=== PATIENT | male | born 1945 | race Caucasian/White ===

== ENCOUNTER 2024-02-28 08:48 | Outpatient (CLI) | payer MEDICARE, SELFPAY ==
[2024-03-06 19:09] VITALS: BMI 30.7
--- NOTE | 2024-03-06 19:09 | WPDSLEEPSTUD ---
Sleep Study Date of Study: 02/28/24 Ordering Provider: MG Bauer Interpreting Physician: Barbara Dixon DO Sleep Study Type: Split Polysomnogram Height: 1.63 m Weight: 81.193 kg Body Mass Index: 30.7 Neck Circumference (inches): 16.25 [place]: 4 Reason for Sleep Study Difficulty tolerating CPAP. Sleep History The patient is a 79 year old male with diabetes, hypertension, hearing loss, cervical radiculopathy, hyperlipidemia, hypertension, migraines, peripheral neuritis, history of TIA and previously diagnosed sleep apnea that had a sleep study ordered by the Pulmonary group to look at other treatment options for his sleep apnea. The patient denies awakening from sleep short of breath. He denies awakening at night with heartburn, belching or cough. He rarely snores and is never loud enough that others complain. He occasionally has trouble sleeping when he has a cold. He denies waking up gasping for air throughout the night. He denies having breathing problems at night observed by himself or others. He occasionally sweats excessively at night. He denies having heart palpitations or irregular heartbeats during the night. He occasionally falls asleep during the day but never while driving. He denies sleep paralysis, cataplexy and hypnagogic / hypnopompic hallucinations. He denies having trouble at school or work due to sleepiness. He denies feeling afraid of going to sleep. He occasionally has nightmares. He occasionally remembers his dreams. He denies having thoughts racing through his mind. He rarely feels sad, depressed or anxious. He denies having muscular tension. He occasionally notices parts of his body jerk. He denies kicking during the night. He occasionally has crawling and aching feelings in his legs but rarely has leg pain during the night. He denies grinding his teeth during sleep and denies awakening with morning jaw pain. He is rarely bothered by pain during the day and rarely awakened by pain during the night. He occasionally wakes up feeling stiff in the morning. He rarely wakes up with sore or achy muscles. He rarely wakes up with pain in the neck, spine and other joints. He goes to bed at 9:00 p.m. on both weekdays and weekends. It takes him 15 minutes to fall asleep. He wakes up once throughout the night to use the restroom, drink coffee and eat breakfast. he will stay awake for 3 hours and then go back to bed. He wakes up at 2:00 a.m. on both weekdays and weekends. He typically gets 8 hours of sleep per night. He will stay in bed for 15 minutes after waking up in the morning. He currently lives with his . He denies consuming any caffeinated beverages within 2 hours of bedtime. He denies engaging in physical exercise before bedtime. He will watch television before falling asleep. He will take naps in the afternoon or the evening and they are refreshing. He consumes 36 oz of caffeinated beverage per day. He will consume 1 alcoholic beverage per day. He denies tobacco and recreational drug use. [facility] Past Medical History Medical History Arthritis Cataract Cervical radiculopathy at C5 Dependence on other enabling machines and devices Diabetes Diabetes mellitus, type 2 Essential (primary) hypertension Hearing loss Hyperlipemia Hypertension Migraines Obesity (BMI 30.0-34.9) CB (obstructive sleep apnea) Peripheral neuritis of both feet Sleep apnea CPAP TIA (transient ischemic attack) (~02/2019) Unspecified vitamin D deficiency Urethral stricture Surgical History Surgical History History of cataract surgery (~10/15/19) History of cataract surgery (~11/14/19) History of dilation of urethra History of eye surgery (~04/16/19) hole in macula Family History Family History Father Emphysem
== END 2024-02-29 06:19 | disposition home or self-care (01) ==
LOC: ANHCSM 08:49
PROVIDERS: PCP Family Medicine; Visit Provider Physician Assistant
DX: G47.33 Obstructive sleep apnea (adult) (pediatric) (principal); I10 Essential (primary) hypertension
CPT/HCPCS: 95811

== ENCOUNTER 2024-07-30 23:21 | Emergency (ER) | payer MEDICARE, SELFPAY ==
--- NOTE | ~2024-07-30 | XR_ITS ---
EXAMINATION: XR chest 2V DATE: 07/30/2024 23:55 INDICATION: Chest pain across the back TECHNIQUE: PA and lateral views of the chest were obtained. COMPARISON: None FINDINGS: There are few small bilateral calcified pulmonary nodules along with calcified bilateral hilar lymph nodes consistent with old granulomatous disease. No other airspace opacities, pulmonary edema, pleura l effusion or pneumothorax. The cardiomediastinal silhouette is normal. Mild thoracic spondylosis wit h bridging osteophytes at multiple levels consistent with diffuse idiopathic skeletal hyperostosis (D MEY). IMPRESSION: 1. No acute cardiopulmonary disease. Reviewed, dictated and finalized at location A.
--- NOTE | 2024-07-30 23:23 | ECG_ITS ---
Test Date: 2024-07-30 23:28:32 Measurements Intervals Kimberly Rate: 96 P: 52 NE: 202 QRS: -28 QRSD: 106 T: 48 QT: 354 QTc: 448 Interpretive Statements SINUS RHYTHM POSSIBLE LEFT ATRIAL ENLARGEMENT LOW QRS VOLTAGE IN PRECORDIAL LEADS POSSIBLE ANTERIOR MYOCARDIAL INFARCTION , PROBABLY OLD BORDERLINE ST-T WAVE ABNORMALITY- HIGH LATERAL LEADS BASELINE ARTIFACT- I, II, III, AVR, AVL, AVF, V1-V6 ABNORMAL ECG No previous ECG available for comparison Electronically Signed On 07-31-2024 10:15:18 CDT by Tony Lao D.O.
[2024-07-30 23:28] VITALS: BP 122/78; PULSE 90; RESP 20; TEMP 36.9; O2SAT 100
[2024-07-30 23:46] LABS: Hematocrit 49.4 % (42.0-52.0); Hemoglobin 17.3 g/dL (14.0-18.0); Mean Corpuscular Hemoglobin 31.6 pg (26-34); Mean Corpuscular Volume 90.1 fl (80-100); Platelet Count Result 177 k/mm3 (150-375); Red Blood Count 5.48 M/mm3 (4.6-6.20); Red Cell Distribution Width 12.9 % (11.5-14.5); White Blood Count 9.2 K/mm3 (4.5-10.0)
[2024-07-30 23:47] LABS: Basophils Absolute Auto 0.1 K/mm3 (0.0-0.1); Basophils Percent Auto 0.5 % (0.2-1.2); Eosinophils Absolute Auto 0.2 K/mm3 (0-0.3); Eosinophils Percent Auto 1.9 % (0-4.4); Immature Granulocyte Absolute 0.03 K/mm3 (0.00-0.031); Immature Granulocyte Percent A 0.3 % (0-0.5); Lymphocytes Absolute Auto 3.19 K/mm3 (0.9-3.2); Lymphocytes Percent Auto 34.5 % (18.3-44.2); Mean Platelet Volume 10.7 fl (7.4-10.4); Monocytes Percent Auto 10.7 % (2.6-8.5); Neutrophils Absolute Auto 4.8 K/mm3 (1.3-6.7); Neutrophils Percent Auto 52.1 % (45.5-73.1)
[2024-07-30 23:57] LABS: Prothrombin Time 13.7 Seconds (11.1-14.7)
[2024-07-30 23:58] LABS: Partial Thromboplastin Time 30.3 Seconds (22.3-36.8); Potassium 4.2 mmol/L (3.4-5.0)
[2024-07-31 00:09] LABS: Troponin I < 0.012 ng/mL (0.000-0.034)
[2024-07-31 00:56] LABS: Bilirubin,Total 0.4 mg/dL (0.2-1.3); Lipase 88 U/L (23-300)
[2024-07-31 01:02] LABS: Alanine Aminotransferase 26 U/L (6-50); Albumin Level 4.8 g/dL (3.5-5.1); Alkaline Phosphatase 60 U/L (38-126); Anion Gap 16 mmol/L (4-12); Aspartate Amino Transferase 31 U/L (17-59); Blood Urea Nitrogen 20 mg/dL (9-20); Calcium 9.5 mg/dL (8.4-10.2); Carbon Dioxide 23 mmol/L (22-30); Chloride 101 mmol/L (98-107); Estimated CRCL calculation 59 ml/min; Estimated Glomerular Filt Rate > 60; Glucose 126 mg/dL (65-110); Sodium 140 mmol/L (137-145)
== END 2024-07-31 02:10 | disposition left against medical advice (07) ==
PROVIDERS: Emergency Provider Emergency Medicine; PCP Family Medicine
DX: R07.9 Chest pain, unspecified (principal)
CPT/HCPCS: 36415; 71046; 80053; 83690; 84484; 85025; 85610; 85730; 93005; 99199

== ENCOUNTER 2024-08-06 10:46 | Outpatient (CLI) | payer MEDICARE, SELFPAY | END 2024-08-06 10:47 | disposition home or self-care (01) | LOC: ANHAUDIO 10:47 | PROVIDERS: PCP Family Medicine; Visit Provider Otolaryngology | DX: H90.3 Sensorineural hearing loss, bilateral (principal); H62.43 Otitis externa in other diseases classified elsewhere, bilateral; H69.90 Unspecified Eustachian tube disorder, unspecified ear; K21.9 Gastro-esophageal reflux disease without esophagitis | CPT/HCPCS: 92557; 92567 ==

== ENCOUNTER 2025-09-16 10:44 | Outpatient (CLI) | payer MEDICARE, SELFPAY ==
--- OUTSIDE RECORDS SUMMARY | 2025-09-16 11:22 | XMS_ITS | Clinical Summary ---
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
--- OUTSIDE RECORDS SUMMARY | 2025-09-16 11:22 | XMS_ITS | Clinical Summary ---
Author Organization [facility] Address [address] [place] [address] Care Team Providers Care Veterinary Epidemiologist Name Role Phone Nikolas Miller MD Primary Care Provider [phone] Allergies Active Allergy Reactions Criticality Noted Date Comments Prednisone Rash Medium 02/21/2019 Medications losartan (COZAAR) 100 mg tablet Take 1 tablet (100 mg total) by mouth daily Active metFORMIN (GLUCOPHAGE) 500 mg tablet Take 1 tablet (500 mg total) by mouth 2 (two) times a day with meals Active rosuvastatin (CRESTOR) 10 mg tablet 07/23/2019 Active amLODIPine (NORVASC) 2.5 mg tablet Take 1 tablet (2.5 mg total) by mouth daily Active aspirin 81 mg enteric coated tablet Take 1 tablet (81 mg total) by mouth daily Active cholecalciferol (VITAMIN D-3) 400 unit capsule Act luis fernando Jardiance 25 mg tablet Take 1 tablet (25 mg total) by mouth daily 11/13/2021 Active tamsulosin (FLOMAX) 0.4 mg extended release capsule Take by mouth daily 11/25/2021 Active rosuvastatin (CRESTOR) 5 mg tablet Take 1 tablet (5 mg total) by mouth daily 30 tablet 11 12/07/2021 Active icosapent ethyL (VASCEPA) 1 gram capsule 12/23/2022 Active Ozempic 0.25 mg or 0.5 mg(2 mg/1.5 mL) pen injector injection 12/16/2022 Active vit C,A-Kv-wzzin-lut ein-zeaxan 250-90-40-1 mg capsule Take by mouth Active MAGNESIUM ORAL Take by mouth Active Active Problems Problem Noted Date Diagnosed Date Myalgia due to statin 12/28/2022 Type 2 diabetes mellitus wit h complication, without long-term current use of insulin 05/28/2019 Mixed hyperlipidemia 05/28/2019 Essential hypertension 05/28/2019 Obstructive sleep apnea 05/28/2019 TIA (transient ischemic attack) 05/28/2019 Surgical History Surgery Date Site/Laterality Comments OTHER SURGICAL HISTORY macular hole repair Medical History Medical History Date Comments Hypertension Diabetes mellitus Hyperlipidemia Stroke (HCC) Cataract Family History Medical History Relation Name Comments Heart disease Father Heart disease Mother Relation Name Status Comments Father Mother Social History Tobacco Use Types Packs/Day Years Used Date Smoking Tobacco: Never Smokeless Tobacco: Never Tobacco Cessation:Counseling Given: Not Answered Alcohol Use Standard Drinks/Week Comments Yes 0 (1 standard drink = 0.6 oz pur e alcohol) PHQ-2 Answer Date Recorded PHQ-2 Score 0 06/29/2019 Sex and Gender Information Value Date Recorded Sex Assigned at Not on file Legal Sex Male 6:54 PM HEARING AID CONSULTANT Gender Identity Not on file Sexual Orientation Not on file Last Filed Vital Signs Vital Sign Reading Time Taken Comments Blood Pressure 122/76 02/16/2024 10:44 AM CDT Pulse 60 02/16/2024 10:44 AM CDT Temperature 36.4 C (97.5 F) 02/16/2024 10:44 AM CDT Respiratory Rate 18 10/10/2019 12:40 PM HEARING AID CONSULTANT Oxygen Saturation 96% 02/16/2024 10:44 AM CDT Inhaled Oxygen Concentration - - Weight 83.2 kg (183 lb 8 oz) 02/16/2024 10:44 AM CDT Height 170.2 cm (5' 7) 02/16/2024 10:44 AM CDT Body Mass Index 28.74 02/16/2024 10:44 AM CDT Plan of Treatment Health Maintenance Due Date Last Done Comments Albumin Creatinine Ratio, Urine 1945 Fall Risk Assessment 1945 Dilated Eye Exam 1945 Foot Exam 1945 DTaP/Tdap/Td Vaccine (1 - Tdap) 1958 Hepatitis B Screening 1965 Pneumococcal vaccine 65+ (1 of 2 - PCV) 1966 Zoster Vaccine (1 of 2) 1997 Well Visit 65+ 01/08/2012 Hemoglobin A1C 08/23/2019 02/21/2019, 02/21/2019 Depression Screening 02/22/2020 02/21/2019 Lipid Panel 02/22/2020 02/21/2019, 02/21/2019 eGFR 09/20/2020 09/20/2019 Influenza Vaccine (#1) 2025 08/22/2020 Hepatitis C Screening Completed 09/20/2019 Procedures Procedure Name Priority Date/Time Associated Diagnosis Comments HEPATITIS C ANTIBODY Routine 09/20/2019 10:29 AM HEARING AID CONSULTANT Positive GLENN (antinuclear antibody) Arthralgia, unspecified joint Myalgia EGFR Routine 09/20/2019 10:29 AM HEARING AID CONSULTANT Positive GLENN (antinuclear antibody) Arthralgia, unspecified joint Myalgia HEMOGLOBIN A1C STAT 02/21/2019 9:53 PM CDT LIPID PANEL STAT 02/21/2019 9:53 PM CDT from Last 3 Months or Most Recently Relevant to Health Maintenance Results * eGFR (09/20/2019 10:29 AM HEARING AID CONSULTANT) eGFR 85 mL/min/1.7 3 m2 [facility] Comment: Interpretive Data Reference Interval Normal >/= 90 mL/min/1.73m2 Mildly decreased* 60 - 89 mL/min/1.73m2 Mildly to moderately decreased 45 - 59 mL/min/1.73m2 Moderately to severely decreased 30 - 44 mL/min/1.73m2 Severely decreased 15 - 29 mL/min/1.73m2 Kidney Failure < 15 mL/min/1.73m2 *Relative to young adult level If -Tanzanian multiply value by 1.16. Estimated glomerular filtration rate is determined by the CKD-EPI equation recommended by the National Kidney Foundation (KDIGO 2012 Clinical Practice Guideline for the Evaluation and Management of Chronic Kidney Disease. Kidney Intnl Suppl Nov 2012;3:1). The CKD-EPI equation should not be used for patients with unstable renal function and has not been validated in children and those over 70. Current interpretive data was last reviewed 2017. Blood specimen (specimen) 09/20/2019 10:29 AM HEARING AID CONSULTANT 09/20/2019 3:38 PM HEARING AID CONSULTANT Acacia Mathews MD LAB BLOOD ORDERABL ES Final Result Performing Organization Address City/[facility]/ZIP Co de Phone Number [facility] [address] [place] [address] * Hepatitis C antibody (09/20/2019 10:29 AM HEARING AID CONSULTANT) Pathologist [facility] Hep C Ab Non-Reactiv e Non-Reactiv e [facility] Blood specimen (specimen) 09/20/2019 10:29 AM HEARING AID CONSULTANT 09/20/2019 3:22 PM HEARING AID CONSULTANT Acacia Mathews MD LAB MICROBIOLOGY - GENERAL ORDERABLES Final Result Performing Organization Address [facility] Co de Phone Number [facility] [address] Department [place] [address] * (ABNORMAL) Hemoglobin A1c (02/21/2019 9:53 PM CDT) Pathologist [facility] Hgb A1C 6.6(H) 4.0 - 5.6 % [facility] Estimated Average Glucose 143 mg/dL [facility] Comment: The ADA recommends reporting an estimated Average Glucose (eAG) with all Hemoglobin A1c results using the equation derived from a study of 507 normal and diabetic adults. Minority populations were underrepresented and children were not included. (Diabetes Care 31:2814-3050, 2008). The eAG is not equivalent to a fasting glucose. Blood specimen (specimen) 02/21/2019 9:53 PM CDT 02/21/2019 10:15 PM CDT Narrative [facility] - 02/22/2019 12:16 AM CDT Kristi Myles MD LAB BLOOD ORDERABLES Final Result Performing Organization Address City/[facility]/ZIP Co de Phone Number [facility] [address] [facility] Department [place] [address] * (ABNORMAL) Lipid panel (02/21/2019 9:53 PM CDT) [facility] Signature Cholesterol 155 30 - 199 mg/dL [facility] Comment: Interpretive Data Ages < or = 19 years Acceptable: <170 mg/dL Borderline high: 170-199 mg/dL High: >or= 200 mg/dL Ages > or = 20 years Desirable: <200 mg/dL Borderline high: 200-239 mg/dL High: >or= 240 mg/dL Literature References: 1. Expert Panel on Integrated Guidelines for Cardiovascular Health and Risk Reduction in Children and Adolescents. Pediatrics 2011;128:S213 2. NCEP Expert Panel. Circulation 2004;110:227 Current Interpretive Data was last revised on 2018. Triglycerides 188(H) <=149 mg/dL [facility] Comment: Interpretive Data Ages < or = 9 years Acceptable: <75 mg/dL Borderline high: 75-99 mg/dL High: >or= 100 mg/dL Ages 10 to 20 years Acceptable: <90 mg/dL Borderline high: 90-129 mg/dL High: >or= 130 mg/dL Ages > or = 20 years Desirable: <150 mg/dL Borderline high: 150-199 mg/dL High: 200-499 mg/dL Very high: >or= 499 mg/dL Literature References: 1. Expert Panel on Integrated Guidelines for Cardiovascular Health and Risk Reduction in Children and Adolescents. Pediatrics 2011;128:S213 2. NCEP Expert Panel. Circulation 2004;110:227 Current Interpretive Data was last revised on 2018. HDL 34(L) >=40 mg/dL [facility] Comment: Interpretive Data Ages < or = 19 years Acceptable: >45 mg/dL Borderline low: 40-45 mg/dL Low: <40 mg/dL Ages > or = 20 years Desirable: >or= 60 mg/dL Low: <40 mg/dL Literature References: 1. Expert Panel on Integrated Guidelines for Cardiovascular Health and Risk Reduction in Children and Adolescents. Pediatrics 2011;128:S213 2. NCEP Expert Panel. Circulation 2004;110:227 Current Interpretive Data was last revised on 2018. LDL, calculated 83 <=129 mg/dL [facility] Comment: Interpretive Data Ages < or = 19 years Acceptable: <110 mg/dL Borderline high: 110-129 mg/dL High: >or= 130 mg/dL Ages > or = 20 years Optimal: <100 mg/dL Near optimal: 100-129 mg/dL Borderline high: 130-159 mg/dL High: >160 mg/dL Literature References: 1. Expert Panel on Integrated Guidelines for Cardiovascular Health and Risk Reduction in Children and Adolescents. Pediatrics 2011;128:S213 2. NCEP Expert Panel. Circulation 2004;110:227 Current Interpretive Data was last revised on 2018. Non-HDL Cholesterol 121 mg/dL [facility] Comment: Interpretive Data Ages < or = 19 years Acceptable: <120 mg/dL Borderline high: 120-144 mg/dL High: >145 mg/dL Ages > or = 20 years When triglycerides are >200 mg/dL, Non-HDL cholesterol is a secondary target of therapy with treatment goals that are 30 mg/dL greater than the LDL cholesterol target. Literature References: 1. Expert Panel on Integrated Guidelines for Cardiovascular Health and Risk Reduction in Children and Adolescents. Pediatrics 2011;128:S213 2. NCEP Expert Panel. Circulation 2004;110:227 Current Interpretive Data was last revised on 2018. Chol/HDL ratio 5 [facility] Blood specimen (specimen) 02/21/2019 9:53 PM CDT 02/21/2019 10:07 PM CDT Narrative [facility] - 02/22/2019 12:12 AM CDT Kristi Myles MD LAB BLOOD ORDERABLES Final Result [facility] [address] [facility] Department [place] [address] from Last 3 Months or Most Recently Relevant to Health Maintenance Insurance [facility] MDCR HMO REF MDCR HMO REF Advance Directives For more information, please contact: [phone] * Full Code (Latest Code Status on File) Date Activated Date Inactivated Comments 02/21/2019 11:49 PM 02/22/2019 9:51 PM Care Teams Veterinary Epidemiologist Relationship Specialty Start Date End Date Nikolas Miller MD PCP - General Family Medicine 12/08/20
--- OUTSIDE RECORDS SUMMARY | 2025-09-16 11:22 | XMS_ITS | Encounter Summary ---
Author Organization [facility] Address [address] [place] [address] Care Team Providers Care Corporate Executive Chef Name Role Phone Unavailable Primary Care Provider Unavailabl e Encounter Details Date Type Department Care Team (Late st Contact Info) Description 05/03/2001 Outpatient [facility] [address] [place] [address]. [place] [address] Cleo Calvo MD NO ADDRESS ON FILE Social History Tobacco Use Types Packs/Day Years Used Date Smoking Tobacco: Never Assessed Sex and Gender Information Value Date Recorded Sex Assigned at Not on file Legal Sex Male 3:37 AM SALES DEVELOPER Gender Identity Not on file Sexual Orientation Not on file documented as of this encounter Plan of Treatment Not on file documented as of this encounter Visit Diagnoses Not on filedocumented in this encounter
--- OUTSIDE RECORDS SUMMARY | 2025-09-16 11:22 | XMS_ITS | Encounter Summary ---
Author Organization [facility] Address [address] [place] [address] Care Team Providers Care Tram Inspector Name Role Phone Unavailable Primary Care Provider Unavailabl e Encounter Details Date Type Department Care Team (Late st Contact Info) Description 06/15/2001 Outpatient [facility] [address] [place] [address]. [place] [address] Cleo Calvo MD NO ADDRESS ON FILE Social History Tobacco Use Types Packs/Day Years Used Date Smoking Tobacco: Never Assessed Sex and Gender Information Value Date Recorded Sex Assigned at Not on file Legal Sex Male 3:37 AM ENTERTAINMENT USHER Gender Identity Not on file Sexual Orientation Not on file documented as of this encounter Plan of Treatment Not on file documented as of this encounter Visit Diagnoses Not on filedocumented in this encounter
--- OUTSIDE RECORDS SUMMARY | 2025-09-16 11:22 | XMS_ITS | Encounter Summary ---
Author Organization [facility] Address [address] [place] [address] Care Team Providers Care Inspector Scales Name Role Phone Unavailable Primary Care Provider Unavailabl e Encounter Details Date Type Department Care Team (Late st Contact Info) Description 04/23/2001 Outpatient [facility] [address] [place] [address]. 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
--- OUTSIDE RECORDS SUMMARY | 2025-09-16 11:22 | XMS_ITS | Encounter Summary ---
Author Organization [facility] Address [address] [place] [address] Care Team Providers Care Enrichment Assistant Name Role Phone Unavailable Primary Care Provider Unavailabl e Encounter Details Date Type Department Care Team (Late st Contact Info) Description 09/06/2001 Outpatient [facility] [address] [place] [address]. [place] [address] Cleo Calvo MD NO ADDRESS ON FILE Social History Tobacco Use Types Packs/Day Years Used Date Smoking Tobacco: Never Assessed Sex and Gender Information Value Date Recorded Sex Assigned at Not on file Legal Sex Male 3:37 AM POLE INSPECTOR Gender Identity Not on file Sexual Orientation Not on file documented as of this encounter Plan of Treatment Not on file documented as of this encounter Visit Diagnoses Not on filedocumented in this encounter
--- OUTSIDE RECORDS SUMMARY | 2025-09-16 11:22 | XMS_ITS | Encounter Summary ---
Author Organization [facility] Address [address] [place] [address] Care Team Providers Care Information Management Manager Name Role Phone Unavailable Primary Care Provider Unavailabl e Encounter Details Date Type Department Care Team (Late st Contact Info) Description 03/13/2009 Outpatient Historical [facility] Basilio Navarro MD [address] [place] [address] Social History Tobacco Use Types Packs/Day Years Used Date Smoking Tobacco: Never Assessed Sex and Gender Information Value Date Recorded Sex Assigned at Not on file Legal Sex Male 3:37 AM PROJECT COORDINATOR Gender Identity Not on file Sexual Orientation Not on file documented as of this encounter Plan of Treatment Not on file documented as of this encounter Procedures Procedure Name Priority Date/Time Associated Diagnosis Comments PATHOLOGY Routine 03/13/2009 11:16 AM CDT documented in this encounter Results * PATHOLOGY (03/13/2009 11:16 AM CDT) FINAL REPORT [address] [address] Patient: MARY BYERS : 1945 Procedure Date: 03/13/2009 Accession Date: 03/13/2009 Case No: [id number] Ordering Dr: BASILIO NAVARRO Case types AW, BW, FW, NW and SH are performed by [facility], [place], [place] SURGICAL PATHOLOGY & NON-GYNECOLOGIC CYTOPATHOLOGY REPORT DIAGNOSIS LARGE INTESTINE, CECUM, ENDOSCOPIC BIOPSY: - SERRATED POLYP (SEE DESCRIPTION). Specimen Description: Cecal colon polyp. Operative Procedure: Colonoscopy. Patient Information/History /Diagnosis: None provided. Gross: Received in a single container labeled Mary Carril, cecal polyp are two krishnamurthy tissue fragments measuring 0.1 and 0.2 cm in greatest dimension. The specimen is completely submitted labeled A1. ALICIA/MAIKEL 03.13.2009 02:22 pm Microscopic: Received are slides labeled [id number], Mary Byers. Sections of cecum identify serrated colonic glands surfaced by cells with abundant eosinophilic cytoplasm and intracytoplasmic mucin. Gland dilatation is present, suggestive of a sessile serrated polyp (adenoma). However, the changes are not sufficiently developed to establish this diagnosis with certainty. IRMA/MAIKEL 03.16.2009 12:49 pm Staging Form: No. ELECTRONIC SIGNATURE FOR UZIEL GALINDO M.D.- 03/16/09 04:07 pm INTERFACE SYSTEM 03/13/2009 11:1 6 AM CDT us Basilio Navarro MD PATHOLOGY/CYTOLOGY ORDERABL ES Final Result INTERFACE SYSTEM Refer to clinic/hospital department documented in this encounter Visit Diagnoses Not on filedocumented in this encounter
--- OUTSIDE RECORDS SUMMARY | 2025-09-16 11:22 | XMS_ITS | Encounter Summary ---
Author Organization [facility] Address [address] [place] [address] Care Team Providers Care Broadcast Traffic Coordinator Name Role Phone Unavailable Primary Care Provider Unavailabl e Encounter Details Date Type Department Care Team (Late st Contact Info) Description 03/01/2001 [facility]patient [facility] [address] [place] [address]. [place] [address] Cleo Calvo MD NO ADDRESS ON FILE Social History Tobacco Use Types Packs/Day Years Used Date Smoking Tobacco: Never Assessed Sex and Gender Information Value Date Recorded Sex Assigned at Not on file Legal Sex Male 3:37 AM ACCOUNT COLLECTOR Gender Identity Not on file Sexual Orientation Not on file documented as of this encounter Plan of Treatment Not on file documented as of this encounter Visit Diagnoses Not on filedocumented in this encounter
== END 2025-09-16 10:45 | disposition home or self-care (01) ==
LOC: ANHGOSHLAB 10:46
PROVIDERS: PCP Family Medicine; Visit Provider Family Medicine
DX: E11.9 Type 2 diabetes mellitus without complications (principal); I48.91 Unspecified atrial fibrillation; K62.5 Hemorrhage of anus and rectum
CPT/HCPCS: 36415

== ENCOUNTER 2025-09-25 07:17 | Outpatient (CLI) | payer MEDICARE, SELFPAY ==
--- NOTE | ~2025-09-25 | NM_ITS ---
EXAMINATION: NM bishop stress w perfusion DATE: 09/25/2025 10:26 INDICATION: Atrial fibrillation TECHNIQUE: Rest images were obtained following intravenous administration of 12.1 mCi Tc99m tetrofosmin (Myoview). The patient was infused intravenously with Lexiscan (regadenoson). Then, 34.4 mCi Tc99m tetrofosmin (Myoview) was administered intravenously, and stress images were obtained. Data was ernesto nstructed into short axis and horizontal and vertical long axis SPECT images. Gated SPECT images were also obtained. COMPARISON: None. FINDINGS: On the short axis, and vertical long axis images, photopenic changes in the inferior wall normalizes on prone imaging. The remainder of the left ventricle appears normal. There is no segmental wall motion abnormality. Left ventricular ejection fraction measures 69%. IMPRESSION: 1. No definite ischemia or infarct. 2. Normal left ventricular ejection fraction measuring 69%. Reviewed, dictated and finalized at location A. ICAL DATA MANAGEMENT MANAGER
--- OUTSIDE RECORDS SUMMARY | 2025-09-25 07:21 | XMS_ITS | Clinical Summary ---
Author Organization [facility] Address [address] [facility] Attn: Epic Prelude ADT HUYEN GAINES [address] Care Team Providers Care Continuous Dryout Operator Name Role Phone Unavailable Primary Care Provider Unavailabl e Social History Tobacco Use Types Packs/Day Years Used Date Smoking Tobacco: Never Assessed Sex and Gender Information Value Date Recorded Sex Assigned at Not on file Legal Sex Male 3:37 AM ELECTRICAL ACCESSORIES I ASSEMBLER Gender Identity Not on file Sexual Orientation [...]
--- OUTSIDE RECORDS SUMMARY | 2025-09-25 07:22 | XMS_ITS | Encounter Summary ---
Author Organization [facility] Address [address] [place] [address] Care Team Providers Care Fleece Tier Name Role Phone Unavailable Primary Care Provider Unavailabl e Encounter Details Date Type Department Care Team (Late st Contact Info) Description 06/15/2001 [facility] [address] [place] [address]. 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
--- OUTSIDE RECORDS SUMMARY | 2025-09-25 07:22 | XMS_ITS | Encounter Summary ---
Author Organization [facility] Address [address] [place] [address] Care Team Providers Care Rn Gynecology Name Role Phone Unavailable Primary Care Provider Unavailabl e Encounter Details Date Type Department Care Team (Late st Contact Info) Description 05/03/2001 Outpatient [facility] [address] [place] [address]. 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
--- OUTSIDE RECORDS SUMMARY | 2025-09-25 07:22 | XMS_ITS | Clinical Summary ---
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 Gender Identity Not on file Sexual Orientation Not on file Last Filed Vital Signs Vital Sign Reading Time Taken Comments Blood Pressure 122/76 02/16/2024 10:44 AM CDT Pulse 60 02/16/2024 10:44 AM CDT Temperature 36.4 C (97.5 F) 02/16/2024 10:44 AM CDT Respiratory Rate 18 10/10/2019 12:40 PM AUTO BRAKE TECHNICIAN Oxygen Saturation 96% 02/16/2024 10:44 AM CDT [...] HEPATITIS C ANTIBODY Routine 09/20/2019 10:29 AM AUTO BRAKE TECHNICIAN Positive GLENN (antinuclear antibody) Arthralgia, unspecified joint Myalgia EGFR Routine 09/20/2019 10:29 AM AUTO BRAKE TECHNICIAN Positive GLENN (antinuclear antibody) Arthralgia, unspecified joint Myalgia HEMOGLOBIN A1C STAT 02/21/2019 9:53 PM CDT LIPID PANEL STAT 02/21/2019 9:53 PM CDT from Last 3 Months or Most Recently Relevant to Health Maintenance Results * eGFR (09/20/2019 10:29 AM AUTO BRAKE TECHNICIAN) eGFR 85 mL/min/1.7 3 m2 [facility] Comment: Interpretive Data Reference Interval Normal >/= 90 mL/min/1.73m2 Mildly decreased* 60 - 89 mL/min/1.73m2 Mildly to moderately decreased 45 - 59 mL/min/1.73m2 Moderately to severely decreased 30 - 44 mL/min/1.73m2 Severely decreased 15 - 29 mL/min/1.73m2 Kidney Failure < 15 mL/min/1.73m2 *Relative to young adult level If -Panamanian multiply value by 1.16. Estimated glomerular filtration [...] 2017. Blood specimen (specimen) 09/20/2019 10:29 AM AUTO BRAKE TECHNICIAN 09/20/2019 3:38 PM AUTO BRAKE TECHNICIAN Acacia Mathews MD LAB BLOOD ORDERABL ES Final Result [facility] [address] [place] [address] * Hepatitis C antibody (09/20/2019 10:29 AM AUTO BRAKE TECHNICIAN) Pathologist [facility] Hep C Ab Non-Reactiv e Non-Reactiv e [facility] Blood specimen (specimen) 09/20/2019 10:29 AM AUTO BRAKE TECHNICIAN 09/20/2019 3:22 PM AUTO BRAKE TECHNICIAN Acacia Mathews MD LAB MICROBIOLOGY - GENERAL ORDERABLES Final Result Performing Organization Address [facility] Co de Phone Number [facility] [address] Department [place] [address] * (ABNORMAL) Hemoglobin A1c (02/21/2019 9:53 PM CDT) Hgb A1C 6.6(H) 4.0 - 5.6 % [facility] Estimated Average Glucose 143 mg/dL [facility] Comment: The ADA recommends reporting an estimated Average Glucose (eAG) with all Hemoglobin A1c results using the equation derived from a study of 507 normal and diabetic adults. Minority populations were underrepresented and children were not included. (Diabetes Care 31:3629-7450, 2008). The eAG is not equivalent to a fasting glucose. Blood specimen (specimen) 02/21/2019 9:53 PM CDT 02/21/2019 10:15 PM CDT Narrative [facility] - 02/22/2019 12:16 AM CDT Kristi Myles MD LAB BLOOD ORDERABLES Final Result Performing Organization Address City/[facility]/ZIP Co de Phone Number [facility] [address] [facility] Department [place] [address] * (ABNORMAL) Lipid panel (02/21/2019 9:53 PM CDT) Cholesterol 155 30 - 199 mg/dL [facility] Comment: Interpretive Data Ages < or = [...] revised on 2018. Triglycerides 188(H) <=149 mg/dL [facility] Comment: Interpretive Data Ages < or = [...] revised on 2018. HDL 34(L) >=40 mg/dL [facility] Comment: Interpretive Data Ages < or = [...] on 2018. LDL, calculated 83 <=129 mg/dL [facility] Comment: Interpretive Data Ages < or = [...] revised on 2018. Non-HDL Cholesterol 121 mg/dL [facility] Comment: Interpretive Data Ages < or = [...] last revised on 2018. Chol/HDL ratio 5 [facility] Blood specimen (specimen) 02/21/2019 9:53 PM CDT 02/21/2019 10:07 PM CDT Narrative [facility] - 02/22/2019 12:12 AM CDT Kristi Myles MD LAB BLOOD ORDERABLES Final Result [facility] Department [place] [address] from Last 3 Months or Most Recently Relevant to Health Maintenance Insurance [facility] MDCR HMO REF MDCR HMO REF Advance Directives For more information, please contact: [phone] * Full Code (Latest Code Status on File) Date Activated Date Inactivated Comments 02/21/2019 11:49 PM 02/22/2019 9:51 PM Care Teams Delivery Supervisor Relationship Specialty Start Date End Date Nikolas Miller MD PCP - General Family Medicine 12/08/20
--- OUTSIDE RECORDS SUMMARY | 2025-09-25 07:22 | XMS_ITS | Encounter Summary ---
Author Organization [facility] Address 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 Gender Identity Not on file Sexual Orientation Not on file documented as of this encounter Plan of Treatment Not on file documented as of this encounter Procedures Procedure Name Priority Date/Time Associated Diagnosis Comments PATHOLOGY Routine 03/13/2009 11:16 AM CDT documented in this encounter Results * PATHOLOGY (03/13/2009 11:16 AM CDT) FINAL REPORT [address] [address] Patient: MARY BYERS : 1945 Procedure Date: 03/13/2009 Accession Date: 03/13/2009 Case No: [id number] Ordering Dr: BASILIO NAVARRO Case types AW, BW, FW, NW and SH are performed by [facility] [place] [place], [place] SURGICAL PATHOLOGY & NON-GYNECOLOGIC CYTOPATHOLOGY REPORT [...] 02:22 pm Microscopic: Received are slides labeled [id number], Mary Byers. Sections of cecum identify serrated [...]
--- OUTSIDE RECORDS SUMMARY | 2025-09-25 07:22 | XMS_ITS | Encounter Summary ---
Author Organization [facility] Address [address] [place] [address] Care Team Providers Care Rental Counter Clerk Name Role Phone Unavailable Primary Care Provider Unavailabl e Encounter Details Date Type Department Care Team (Late st Contact Info) Description 03/01/2001 Outpatient [facility] [address] [place] [address]. [place] [address] Cleo Calvo MD NO ADDRESS ON FILE Social History Tobacco Use Types Packs/Day Years Used Date Smoking Tobacco: Never Assessed Sex and Gender Information Value Date Recorded Sex Assigned at Not on file Legal Sex Male 3:37 AM TRANSPORT RN Gender Identity Not on file Sexual Orientation Not on file documented as of this encounter Plan of Treatment Not on file documented as of this encounter Visit Diagnoses Not on filedocumented in this encounter
--- OUTSIDE RECORDS SUMMARY | 2025-09-25 07:22 | XMS_ITS | Patient Health Record ---
Author Organization [employer] Address [address] [facility] [address] [address] Care Team Providers Care Jewel Sorter Name Role Phone Levy Mitchell MD Primary Care Provider Demar Crespo Unavailable [phone] Reason For Referral No Information Medications Medication SIG (Take, Route, Frequency, Duration) Notes Start Date End Date Status hydrocortisone/lidocaine suppositories hydrocortisone 35 mg/lidocaine 10 mg 1 per rectum bid; Duration: 15 days 02/06/2018 Active Anusol-HC 25 MG 1 suppository Rectal Twice a day; Duration: 12 days 02/06/2018 Active Plan Of Treatment No Information Insurance Providers Payer Name Payer Address Payer Phone Subscriber Number Group Number Insured Name Patient Relationship to Insured Coverage Start Date Coverage End Date [facility] Medicare Complete Hmo-pos E2 [address] [address] [place] [address] [id number] Norberto Byers Self - patient is the insured
--- OUTSIDE RECORDS SUMMARY | 2025-09-25 07:22 | XMS_ITS | Encounter Summary ---
Author Organization [facility] Address [address] [place] [address] Care Team Providers Care Security Specialist Name Role Phone Unavailable Primary Care Provider Unavailabl e Encounter Details Date Type Department Care Team (Late st Contact Info) Description 04/23/2001 Outpatient [facility] [address] [place] [address]. 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
--- OUTSIDE RECORDS SUMMARY | 2025-09-25 07:22 | XMS_ITS | Encounter Summary ---
Author Organization [facility] Address [address] [place] [address] Care Team Providers Care Bolter Helper Name Role Phone Unavailable Primary Care Provider Unavailabl e Encounter Details Date Type Department Care Team (Late st Contact Info) Description 09/06/2001 Outpatient [facility] [address] [place] [address]. 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
--- NOTE | 2025-09-25 08:06 | EST_ITS ---
Patient Info Name: Norberto Byers Age: 80 years : 1945 Gender: Male Ht: 65 in Wt: 178 lbs BSA: 1.95 m2 HR: 60 bpm BP: 124 / 84 mmHg Exam Date: 09/25/2025 8:06 AM Patient Status: O Admit Date: 09/25/2025 Exam Type: CA stress bishop w NM A regadenoson stress test was performed. Staff Referring Physician: Gissel Miller MD Attending Provider: Gissel Miller MD Exercise Technologist: Rohini Gomez Exercise Physician: Tony Lao DO Summary 1. 1. Negative lexiscan stress test for ischemic ST changes by ECG criteria. 2. 2. Stable hemodynamics throughout the test. 3. 3. Nuclear scan to follow and will be reported separately. Please correlate with it. 4. 4. Patient informed of the above results. Protocol: Lexiscan Stress ECG Details Stage: REST Duration (min): 0 min : 58 sec HR (bpm): 62 SBP (mmHg): 124 DBP (mmHg): 84 Stage: REST Duration (min): 7 min : 40 sec HR (bpm): 74 SBP (mmHg): 124 DBP (mmHg): 84 Stage: STAGE 1 Duration (min): 0 min : 59 sec HR (bpm): 80 SBP (mmHg): 149 DBP (mmHg): 87 Stage: RECOVERY Duration (min): 1 min : 0 sec HR (bpm): 91 SBP (mmHg): 149 DBP (mmHg): 87 Stage: RECOVERY Duration (min): 2 min : 0 sec HR (bpm): 88 SBP (mmHg): 149 DBP (mmHg): 87 Stage: RECOVERY Duration (min): 3 min : 0 sec HR (bpm): 85 SBP (mmHg): 139 DBP (mmHg): 82 Stage: RECOVERY Duration (min): 4 min : 0 sec HR (bpm): 80 SBP (mmHg): 139 DBP (mmHg): 82 Stage: RECOVERY Duration (min): 5 min : 0 sec HR (bpm): 79 SBP (mmHg): 133 DBP (mmHg): 81 Stage: RECOVERY Duration (min): 5 min : 4 sec HR (bpm): 81 SBP (mmHg): 133 DBP (mmHg): 81 Rest HR: 74 bpm Peak HR: 94 bpm Rest Sys BP: 124 mmHg Peak Sys BP: 149 mmHg Max Pred HR: 142 bpm % Max Pred HR: 66 % Target HR: 121 bpm Max RPP: 14,006 bpm*mmHg Termination Reason: Completed protocol Cardiac Symptoms: Shortness of breath Total Time: 1 min : 0 sec Rest Norwood BP: 84 mmHg Peak Norwood BP: 87 mmHg Total Dose: 0.4 mg Resting ECG Sinus rhythm. Stress ECG No ST changes. Arrhythmias None. Report Signatures
== END 2025-09-25 07:18 | disposition home or self-care (01) ==
PROVIDERS: PCP Family Medicine; Visit Provider Family Medicine
DX: I48.91 Unspecified atrial fibrillation (principal)
CPT/HCPCS: 78452; 93017; A9502; J2785